=== PATIENT | female | born 1975 | race Caucasian/White ===

== ENCOUNTER 2016-12-15 13:43 | Emergency (ER) | payer OTHER ==
[2016-12-15 14:00] VITALS: TEMP 97.5
--- NOTE | 2016-12-15 14:49 | EDPHY ---
H & P Time Seen by Provider: 12/15/16 14:04 HPI/ROS: CHIEF COMPLAINT: Left index finger injury HISTORY OF PRESENT ILLNESS: 41-year-old female presents to the emergency department with injury to the left index finger. The patient states last evening around 7:30 p.m. she cut her left index finger with an emergent asphalt blender. She was able to control the bleeding with firm direct pressure although today she states it started bleeding again. She is right-hand dominant. She believes her tetanus shot is current. Describes the pain as mild. ROS: Denies numbness or tingling in her fingers, retained foreign body or other injuries. Past Medical/Surgical History: Hypothyroidism, anxiety, depression Social History: Single and lives in [place] Physical Exam: On examination the patient has a superficial laceration to the dorsal aspect of the left index finger over the distal phalanx just proximal to the nail. No injury to the nail noted. No active bleeding noted to the laceration. She also has 2 very small less than 0.5 cm superficial lacerations just distal to the 1 cm laceration. No bony tenderness. Full range of motion left index finger. No tendon injury identified. Full flexion extension of her fingers. The other fingers do not appear injured. Constitutional: Initial Vital Signs Temperature (C) 36.4 C 12/15/16 13:58 Heart Rate 70 12/15/16 13:58 Respiratory Rate 16 12/15/16 13:58 Blood Pressure 123/82 H 12/15/16 13:58 O2 Sat (%) 98 12/15/16 13:58 O2 Delivery Mode Room Air Allergies/Adverse Reactions: bacitracin [From Neosporin ([id number])] Allergy (Mild, Verified 12/15/16 13: 57) Rash neomycin [From Neosporin ([id number])] Allergy (Mild, Verified 12/15/16 13:57 ) Rash polymyxin B [From Neosporin ([id number])] Allergy (Mild, Verified 12/15/16 13 :57) Rash Home Medications: Medication Instructions Recorded Lissette 12/15/16 Sertraline HCl [Zoloft 25mg (*)] 25 mg PO DAILY 12/15/16 buPROPion [Wellbutrin 75mg (*)] 75 mg PO 12/15/16 MDM/Departure - [facility] ED Course/Re-evaluation: 41-year-old female presents to the emergency department with injury to the left index finger. The wound is nearly 20 hours old. I explained why sutures are not indicated. Patient verbalized understanding and agreed. Surgicel and dressing applied. The patient was given wound care precautions. Her tetanus shot was current. - Depart Disposition: Home, Routine, Self-Care Clinical Impression: Superficial laceration left index finger Condition: Good Instructions: Acute Wounds (ED) Additional Instructions: Return to the emergency department if you notice any signs or symptoms of infection such as redness, swelling, increased pain, fever, purulent drainage. Keep wound dry, clean and protected. Referrals: DR BREANNA [Other] - As per Instructions
[2016-12-15 15:06] VITALS: BP 118/87; PULSE 62; RESP 14; O2SAT 96
== END 2016-12-15 15:06 | disposition home or self-care (01) ==
DX: S61.211A Laceration without foreign body of left index finger without damage to nail, initial encounter (principal); W29.0XXA Contact with powered kitchen appliance, initial encounter

== ENCOUNTER → 2018-04-01 | Outpatient (CLI) | payer OTHER | LOC: BMCIMAGING 13:30 | DX: Z12.31 Encounter for screening mammogram for malignant neoplasm of breast (principal) ==